=== PATIENT | male | born 1930 | race Caucasian/White ===

== ENCOUNTER 2018-01-26 19:19 | Inpatient (IN) | payer MEDICARE, OTHER ==
[~2018-01-26] VITALS: Ht 175.3 cm; Wt 89.9 kg
[~2018-01-26 19:19] MED LIST: COLACE100 MG PO; FISH OIL 1,2001 EACH PO; LISINOPRIL10 MG PO; LISINOPRIL20 MG PO; MEN'S MULTI-VI1 EACH PO; MIRALAX255 GM PO; SENOKOT-S1 TA1 PO; TENORMIN50 MG PO; VITAMIN D1000 UNI1 PO
[2018-01-26 19:28] VITALS: BP 149/96
[2018-01-26 20:40] LABS: ABSOLUTE LYMPHOCYTES 1.8 thou/uL (0.8-5.3); ABSOLUTE MONOCYTES 0.5 thou/uL (0.0-1.2); ABSOLUTE NEUTROPHILS 6.9 thou/uL (1.6-8.1); BASOPHILS 0.4 %; EOSINOPHILS 0.2 %; HEMATOCRIT 47.5 % (42.0-52.0); HEMOGLOBIN 15.9 gm/dL (14.0-18.0); LYMPHOCYTES 19.6 %; MCH 30.7 pg (26.0-34.0); MCHC 33.5 g/dL (28.0-37.0); MCV 91.7 fL (80.0-100.0); MONOCYTES 5.7 %; MPV 7.7 fl. (7.2-11.1); NUCLEATED RBCS 0 /100WBC; PLATELET COUNT* 196 thou/uL (150-400); POLYS 74.1 %; RBC 5.18 mil/uL (4.50-6.00); RDW-CV 13.1 % (10.5-14.5); WBC 9.3 thou/uL (4.0-11.0)
[2018-01-26 20:48] LABS: ANION GAP 11 mmol/L (7-16); BUN 11 mg/dL (7-18); CALCIUM 9.2 mg/dL (8.5-10.1); CHLORIDE 102 mmol/L (98-107); CO2 27 mmol/L (21-32); GLUCOSE 159 mg/dL (70-99); POTASSIUM 4.2 mmol/L (3.5-5.1); SODIUM 140 mmol/L (136-145)
[2018-01-26 20:51] LABS: APTT 29.7 Seconds (25.0-31.3); INR 1.2; PROTIME 11.5 Seconds (9.20-11.50)
[2018-01-26 20:59] LABS: ALBUMIN 3.4 g/dL (3.4-5.0); ALKALINE PHOSPHATASE 78 U/L (46-116); NT-PRO BRAIN NAT PEPTIDE 130 pg/mL (<300); SGOT 13 U/L (15-37); SGPT 21 U/L (30-65); TOTAL PROTEIN 7.3 g/dL (6.4-8.2); TROPONIN-I LEVEL <0.06 ng/mL (<0.06)
[2018-01-26 21:34] LABS: INFLUENZA A ANTIGEN None Detected (None Detect); INFLUENZA B ANTIGEN None Detected (None Detect)
[2018-01-26 23:15] LABS: URINE BILIRUBIN NEGATIVE (Negative); URINE BLOOD NEGATIVE (Negative); URINE CLARITY SL CLOUDY; URINE COLOR YELLOW; URINE GLUCOSE-RANDOM NEGATIVE (Negative); URINE KETONES NEGATIVE (Negative); URINE LEUKOCYTES-REFLEX NEGATIVE (Negative); URINE NITRITE-REFLEX NEGATIVE (Negative); URINE PROTEIN NEGATIVE (Negative); URINE SPECIFIC GRAVITY 1.025 (1.005-1.030); URINE UROBILINOGEN 0.2 E.U./dl (0.2-1.0)
[2018-01-27 01:00] VITALS: BP 186/91
[2018-01-27] MEDS ORDERED: LIPITOR10 MG PO (03:49)
[2018-01-27] MEDS ORDERED: FLOMAX0.4 MG PO (03:52)
[2018-01-27] MEDS ORDERED: LOPRESSOR50 PO (03:52)
[2018-01-27] MEDS ORDERED: REMERON15 MG PO (03:52)
[2018-01-27] MEDS ORDERED: METFORMIN HCL500 MG PO (03:53)
[2018-01-27 04:21] VITALS: BP 182/95
--- NOTE | 2018-01-27 05:53 | NUR ---
REPORT RECIEVED FROM JIMMY IN ER. ASKED ER NURSE ABOUT SOMETHING FOR PTS BLOOD PRESSURE BEFORE TRANSFER TO UNIT, NURSE STATED THAT ER DOCTOR DID NOT WANT PT TO HAVE ANYTHING BECAUSE THE DOCTOR WAS AFRAID TO LOWER PTS BLOOD PRESSURE TOO MUCH. PT ARRIVED ON UNIT AT 0045. PT ORIENTED TO ROOM, CALL LIGHT SHOWN, WENT OVER FALL AGREEMENT. PTS DAUGHTER HELPED ANSWER QUESTIONS FOR PT PATIENT WAS VERY LETHARGIC AND FALLING ASLEEP DURING QUESTIONING. ASSESSMENT DOCUMENTED. MEDS GIVEN PER E-MAR. IV PATENT FLUIDS INFUISNG. NO REPORTS OF PAIN OR NAUSEA. PT INCONTINENT ONCE THIS SHIFT. PT STOOD WITH MAX ASSIST ONCE THIS SHIFT TO USE URINAL. PT WANTING TO REGAIN STRENTH AND APPITITE BEFORE DISCHARGE. WILL CONTINUE WITH PLAN OF CARE.
[2018-01-27] MEDS ORDERED: CLARITIN10 MG PO (07:46)
[2018-01-27] MEDS ORDERED: NAMENDA 5 MG TAB5 M1 PO (07:49)
[2018-01-27 08:00] VITALS: BP 182/95
[2018-01-27 12:01] LABS: ALBUMIN 2.8 g/dL (3.4-5.0); CALCIUM 8.5 mg/dL (8.5-10.1); CREATININE 0.8 mg/dL (0.6-1.3); TOTAL BILIRUBIN 0.9 mg/dL (<0.1-1.0); TOTAL PROTEIN 6.1 g/dL (6.4-8.2)
--- NOTE | 2018-01-27 13:44 | NUR ---
SW met with pt to complete initial assessment, introduce self, and SW role. Pt very sleepy and [place] but would respond, given time. Pt said that he feels okay at home and said that he didn't think he was ready to go today. SW explained that SW was just meeting pt today and planning ahead. YARIEL called pt dtr Katherine and discussed safe dc planning and possible need for SNF. Pt dtr felt that pt would not need SNF and pt dtr said that she would hire more care assistants and increase time of assistance at home. Pt dtr says that pt has 3 hrs a day for 6 days a week and could increase...pt dtr takes care of pt the other day of the week. SW to continue to follow to assist with safe dc planning.
--- NOTE | 2018-01-27 15:21 | EKG ---
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 : 1930 Requested By: William Montaño Order Number: [id number] MD: Mike Victoria Measurements Intervals [place] Rate: 89 P: 20 WI: 180 QRS: -42 QRSD: 96 T: 39 QT: 356 QTc: 434 Interpretive Statements Sinus rhythm Probable left atrial enlargement Abnormal R-wave progression, late transition Inferior infarct, old Compared to ECG 11/23/2016 22:17:58 Myocardial infarct finding now present Left anterior fascicular block no longer present Electronically Signed On 01-27-2018 15:20:52 TEST CELL TECHNICIAN by Mike Victoria [email or web address] <ELECTRONICALLY SIGNED> By: Mike Victoria MD, FACC 01/27/18 1520 56 56 Mike Victoria MD, FAC /EPI
[2018-01-27 16:00] VITALS: BP 145/69
--- NOTE | 2018-01-27 16:33 | 2DMMODE ---
[place] [address] 2 D/M-MODE ECHOCARDIOGRAM Name: MANJINDER SO Room: [address] IN [facility]#: [id number] Admission: 01/26/18 Attend Phys: Cintia Talavera, Discharge: Date of : [birth year] Date of Service: 01/27/18 1633 Report #: [id number] THIS REPORT FOR: //name// APPROVED REPORT Study performed: 01/27/2018 15:13:06 EXAM: Comprehensive 2D, Doppler, and color-flow Echocardiogram Patient Location: In-Patient Room #: [facility] Status: routine BSA: 2.06 HR: 68 bpm BP: 182/95 mmHg Rhythm: NSR Other Information Study Quality: Good Indications CVA/TIA Echo Enhancing Agent Indication: Rule out Shunt Agent(s) / Amount(s) Used: Agitated Saline 10 cc 2D Dimensions LVEF(%): 75.02 (>50%) IVSd: 15.97 (7-11mm) LVOT Diam: 23.28 (18-24mm) LVDd: 46.21 mm PWd: 11.66 (7-11mm) Ascending Ao: 33.45 (22-36mm) LVDs: 25.98 (25-40mm) Aortic Root: 38.69 mm Herrmann's LVEF: 75.02 % Volumes Left Atrial Volume (Systole) LA ESV Index: 27.40 mL/m2 Aortic Valve AoV Peak Ac.: 1.39 m/s AO Peak Gr.: 7.70 mmHg LVOT Max P.07 mmHg AO Mean Gr.: 4.62 mmHg LVOT Mean P.78 mmHg LVOT Max V: 1.01 m/s AO V2 VTI: 26.95 cm LVOT Mean V: 0.60 m/[place] [address] 2 D/M-MODE ECHOCARDIOGRAM Name: MANJINDER SO Room: [address] [facility].#: [id number] Admission: 01/26/18 Attend Phys: Cintia Talavera, Discharge: Date of : [birth year]/26[birth year] Date of Service: 01/27/18 1633 Report #: [id number] PANDA (VTI): 2.99 cm2 LVOT V1 VTI: 18.91 cm Mitral Valve E/A Ratio: 0.74 MV Decel. Time: 221.70 ms MV E Max Ac.: 0.65 m/s MV PHT: 64.29 ms MVA (PHT): 3.42 cm2 TDI E/Lateral E': 5.91 E/Medial E': 5.42 Medial E' Ac.: 0.12 m/s Lateral E' Ac.: 0.11 m/s Pulmonary Valve PV Peak Ac.: 0.76 m/s PV Peak Gr.: 2.33 mmHg Tricuspid Valve TR Peak Gr.: 31.61 mmHg RVSP: 36.00 mmHg Left Ventricle The left ventricle is normal size. There is normal LV segmental wall motion. Mild to moderate concentric left ventricular hypertrophy. Left ventricular systolic function is normal. The left ventricular ejection fraction is within the normal range. LVEF is 60-65%. Grade I - abnormal relaxation pattern. Right Ventricle The right ventricle is normal size. The right ventricular systolic function is normal. Atria The left atrium size is normal. Interatrial septum is intact without evidence of ASD or PFO. The right atrium size is normal. Aortic Valve The aortic valve is normal in structure. Trace aortic regurgitation. There is no aortic valvular stenosis. Mitral Valve The mitral valve is normal in structure. There is no mitral valve regurgitation noted. No evidence of mitral valve stenosis. Tricuspid Valve The tricuspid valve is normal in structure. Mild tricuspid regurgitation. The RVSP is 35-[place] [address] 2 D/M-MODE ECHOCARDIOGRAM Name: MANJINDER SO Room: [address] IN .R.#: [id number] Admission: 01/26/18 Attend Phys: Cintia Talavera, Discharge: Date of : [birth year]/26/[birth year] Date of Service: 01/27/18 1633 Report #: [id number] Pulmonic Valve The pulmonary valve is normal in structure. Mild pulmonic regurgitation. Great Vessels The aortic root is normal in size. IVC is not well visualized. Pericardium There is no pericardial effusion. <Conclusion> Interatrial septum is intact without evidence of ASD or PFO. Grade I - abnormal relaxation pattern. LVEF is 60-65%. There is normal LV segmental wall motion. Mild to moderate concentric left ventricular hypertrophy. There is no aortic valvular stenosis. Trace aortic regurgitation. Mild tricuspid regurgitation. The RVSP is 35-40 mmHg. <ELECTRONICALLY SIGNED> By: Mike Victoria MD, FACC 01/27/18 1633 32 163 Mike Victoria MD, FACC /INF
--- NOTE | 2018-01-27 19:36 | NUR ---
ASSUMED CARE THIS AM. ORIENTED TO SELF, [place]VAK, IMPULSIVE FALL RISK. ANSWERS YES/NO TO QUESTIONS. DAUGHTER AT BEDSIDE ALL THIS SHIFT, UNABLE TO PROVIDE PHYSICAL ASSIST WITH ADL. PATIENT REPORTEDLY LIVES AT HOME WITH DAUGHTER BEING PRIMARY CAREGIVER BUT DAUGHTER IS PHYSICALLY LIMITED IN ABILITY TO PROVIDE ASSIST DUE TO SEDENTARY LIFESTYLE. PATIENT REPORTEDLY HAS CAREGIVER VISIT HOME FOR A COUPLE HOURS PER DAY, BUT PATIENT IS AT HOME, ALONE FOR SEVERAL HOURS AT A TIME. INCONTINENT OF BLADDER AT TIMES. PATIENT PULLED IV ACCESS OUT DUE TO IMPULSIVITY AND NEED TO VOID, PRIOR TO RECEIVING ASSIST. DID HAVE HARD, FIRM BM THIS SHIFT, DAUGHTER UNAWARE OF LAST BOWEL MOVEMENT. DAUGHTER IS NOT FOND OF PATIENT TRANSITIONING TO SKILLED LTC SETTING AT THIS TIME. HOWEVER, UNDER CURRENT CIRCUMSTANCES, PATIENT IS LEFT ALONE IN HOME FOR SEVERAL HOURS PER DAY, INCONTINENT OF URINE, UNABLE TO NAVIGATE TO TOILET, UNABLE TO PROVIDE SELF FOOD, MULTIPLE RISKS FOR MAJOR, IF NOT LIFE-THREATENING INJURY WHEN LEFT TO HIS OWN DEVICES. CASE MANAGEMENT INFORMED OF SITUATION AND NEED FOR INTERVENTION.
[2018-01-27 21:45] VITALS: BP 144/75
[2018-01-28 02:08] LABS: GLYCOHEMOGLOBIN (HGB A1C) 5.6 % (4.8-5.6)
[2018-01-28 04:19] LABS: ABSOLUTE EOSINOPHILS 0.2 thou/uL (0.0-0.7); ABSOLUTE LYMPHOCYTES 1.6 thou/uL (0.8-5.3); ABSOLUTE MONOCYTES 0.5 thou/uL (0.0-1.2); ABSOLUTE NEUTROPHILS 3.8 thou/uL (1.6-8.1); BASOPHILS 0.6 %; EOSINOPHILS 3.1 %; HEMATOCRIT 42.4 % (42.0-52.0); HEMOGLOBIN 14.6 gm/dL (14.0-18.0); LYMPHOCYTES 26.3 %; MCH 31.3 pg (26.0-34.0); MCHC 34.4 g/dL (28.0-37.0); MONOCYTES 8.1 %; MPV 8.2 fl. (7.2-11.1); NUCLEATED RBCS 0 /100WBC; PLATELET COUNT* 149 thou/uL (150-400); POLYS 61.9 %; RBC 4.66 mil/uL (4.50-6.00); RDW-CV 13.2 % (10.5-14.5); WBC 6.1 thou/uL (4.0-11.0)
[2018-01-28 04:50] LABS: ANION GAP 8 mmol/L (7-16); BUN 13 mg/dL (7-18); CALCIUM 8.5 mg/dL (8.5-10.1); CHLORIDE 105 mmol/L (98-107); CHOLESTEROL 93 mg/dL (<200); CO2 25 mmol/L (21-32); GLUCOSE 101 mg/dL (70-99); HDL CHOLESTEROL 52 mg/dL (>40); LDL CHOLESTEROL 25 mg/dL (<100); SODIUM 138 mmol/L (136-145); TC:HDL 1.8 Ratio (Not establshd); TRIGLYCERIDE 82 mg/dL (<150); VLDL 16 mg/dL (<40)
[2018-01-28 04:53] LABS: SERUM ASSESSMENT Clear
--- NOTE | 2018-01-28 05:34 | NUR ---
PT SLEPT MOST OF SHIFT. ASSESSMENT DOCUMENTED. MEDS GIVEN PER E-JAN. NO REPORTS OF PAIN. NEW IV STARTED IN RIGHT FOREARM, FLUIDS INFUSING. WILL CONTINUE PLAN OF CARE.
[2018-01-28 06:04] LABS: ESR (SEDRATE) 11 mm/hr (0-20)
[2018-01-28 08:00] VITALS: BP 149/70
[2018-01-28 15:03] VITALS: BP 131/59
[2018-01-28 20:00] VITALS: BP 132/66
--- NOTE | 2018-01-28 20:03 | NUR ---
RESUMED CARE THIS AM. ORIENTED X 3, DENIES PAIN, EXT ASSIST WITH ALL ADL. DID AMBULATE 230 FEET WITH THERAPY TODAY. NOTED TO POCKET FOOD DURING MEALS TODAY. CONTINENT OF BOWEL/BLADDER. DAUGHTER AT BEDSIDE. MRI COMPLETE, EEG COMPLETE, DISCHARGE PLAN IS TO RETURN TO HOME WITH PRIVATE DUTY AND DAUGHTER FOR CAREGIVER.
--- NOTE | 2018-01-29 04:59 | NUR ---
PT SLEPT AT INTERVALS DURING THE NIGHT, PLEASANT, UP WITH ASSIST TO THE BSC, PT TURNED, INCONTINENT WELL, DENIED PAIN, DAUGHTER HERE UNTIL HS, CALL LIGHT IN REACH, BED ALARM ON FOR SAFETY, WILL CONTINUE TO MONITOR
[2018-01-29 08:30] VITALS: BP 123/66
[2018-01-29 12:30] VITALS: BP 123/66
--- NOTE | 2018-01-29 12:31 | NUR ---
SW received notification of pt readiness to dc home today with HH services to follow. YARIEL called pt dtr Katherine and discussed safe dc plan; pt/family choice for pt to return home with dtr and dtr plans to increase private duty care as needed and accepting of HH services. Pt/family preference for [facility] services; YARIEL arranged with [facility] and YARIEL faxed referral and orders and med list to fax number [phone]. No other needs or concerns expressed at this time.
[2018-01-29] MEDS ORDERED: VITAMIN B-12500 MCG PO (14:49)
--- NOTE | 2018-01-29 15:18 | NUR ---
I have reviewed the documentation by KERRY WAGNER from 01/29/18 to 01/29/18 and I concur with it. TREVOR BRIGGS
[2018-01-29 16:00] VITALS: BP 129/63
--- NOTE | 2018-01-29 17:10 | NUR ---
PATIENT DISCHARGED TO HOME WITH HOME HEALTH. DISCHARGE PAPERS REVIEWED WITH PATIENT AND DAUGHTER AND SIGNED. NO PRESCRIPTION. PATIENT INFORMED TO START VITAMIN B12 AND TO FOLLOWUP WITH NEUROLOGIST. PATIENT ASSISTED WITH CLOTHING. PATIENT DENIES ANY FURTHER NEEDS. PATIENT TAKEN BY WHEELCHAIR TO EXIT. LEFT WITH DAUGHTER.
--- NOTE | 2018-02-07 15:56 | CON ---
[address] [address] CONSULTATION Name: MANJINDER SO Room: [address] IN M.R.#: [id number] Admission: 01/26/18 Attend Phys: Cintia Talavera MD Discharge: 01/29/18 Date of : [birth year] Report #: [id number] THIS REPORT FOR: //name// CC: Elder Talavera DATE OF SERVICE: 01/27/2018 HISTORY OF PRESENT ILLNESS: This is an 87-year-old male patient who was evaluated by me for altered mental status. This patient's history is provided by the daughter. The daughter indicated that she moved with her father in the middle of last year. This was because he was falling down and was getting untangled. It was associated with memory loss also. His long-term memory was relatively preserved, but short-term memory is not good. He is not able to remember the month and days and he gets confused with that. All of it started spontaneously without any trauma. He does not know anything which makes it better or worse. REVIEW OF SYSTEMS: Indicate that this patient had multiple mechanical falls. He has not been feeling good. He has not been eating good. He has generalized weakness. He feels that he may be getting sick. His medication has not been changed recently. He denies any prior history of stroke. This patient is on Namenda, but I do not know whether he has been diagnosed with dementia or not. No clearcut history is available. I carried out 14-point review of system with the daughter and this was the relevant 14-point review of system in this patient. She does indicate some depression and hypertension. He does have a history of diabetes. They deny any history of stroke. It does not look like the patient has any new eye, ENT, cardiac, respiratory, GI, , musculoskeletal, dermatological, hematological, psychiatric, throat, allergic symptom associated with present symptomatology. The patient does have endocrine symptoms of diabetes and he may have some constitutional symptoms. PAST MEDICAL HISTORY: Positive for what looks like ambulation difficulty. FAMILY HISTORY: Negative for any early age stroke. SOCIAL HISTORY: He does not use any alcohol. PHYSICAL EXAMINATION: Indicate he is alert. He is responsive. He does not talk much, but he does have speech. He is not oriented. His fund of knowledge and memory is diminished. Cranial nerve examination 2-12 was attempted, the best it could be done. It does not appear to be showing any definite abnormality. His strength, sensation, reflexes and tone is symmetrical. His reflexes are diminished on both sides. His strength is poor or he does not give a good effort. His sensation is present. His pulses are palpable. He did not understand the instruction to do the cerebellar sign [place] [address] CONSULTATION Name: MANJINDER SO Room: [address]#: [id number] Admission: 01/26/18 Attend Phys: Cintia Talavera MD Discharge: 01/29/18 Date of : [birth year] Report #: [id number] with the fundus examination for me to look at. He is a very well-developed individual who does not have any dysmorphic features of eyes, ears and face. His vision and hearing looks adequate the best I can tell. He has no thyroid mass. There is no edema, cyanosis or jaundice. Pulses are palpable. Heart sounds mostly looks unremarkable, has no atrial fibrillation, no respiratory difficulty or rhonchi. Blood pressure is 145/69, respirations 18, pulse 84, temperature is 99.1. LABORATORY DATA: Indicated normal white count at 9.3 and B12 was somewhat on the lower side at 278. TSH is normal. He did have a CT scan of the head done which was mostly unremarkable. Ventricles are prominent and probably because of atrophy. IMPRESSION: 1. This patient most likely has underlying dementia. 2. He probably has a superimposed encephalopathy secondary to viral syndrome. 3. Treatment is going to be symptomatic. 4. I will suggest trying some physical therapy, which is already ordered. 5. The daughter needs to decide if she can handle this patient at home or whether he needs to go to residential. 6. We will see how this patient does with physical therapy and reevaluate him tomorrow. RECOMMENDATIONS: 1. We will go ahead and do the MRI. 2. I will check an EEG. 3. I will give him a B12 shot. 4. We will see how he does with physical therapy. 5. Main thing is going to be supportive treatment and see how much he can be managed by family or need to go to residential. Thank you very much for this referral. <ELECTRONICALLY SIGNED> By: Marlo Borden MD 02/07/18 1556 1757 [id number] Borden MD /nt
--- NOTE | 2018-02-07 15:56 | EEG ---
[address] [address] EEG STUDY REPORT Name: SOMANJINDER GIRON Room: [address] IN M.R.#: [id number] Admission: 01/26/18 Attend Phys: Cintia Talavera MD Discharge: 01/29/18 Date of : [birth year] Report #: [id number] THIS REPORT FOR: //name// CC: Elder Talavera DATE OF SERVICE: 01/28/2018 This patient is being evaluated for altered mental status. EEG was done by placing the electrodes by standard 10-20 system of electrode placement. Both referential and sequential montages were used for recording. Background activity in this patient's EEG is about 7 Hz and 30 microvolt. The patient appeared to be drowsy during part of this EEG and that demonstrated even more slowing. Photic stimulation was unremarkable. Throughout the record, no active epileptiform activity was noticed. IMPRESSION: This is a pretty significantly slow electroencephalogram on both sides. That is a nonspecific abnormality, which can occur with encephalopathy, effect of psychotropic medication, dementia, etc. Clinical correlation is recommended. <ELECTRONICALLY SIGNED> By: Marlo Borden MD 02/07/18 1556 1432 [id number] Borden MD /nt
[2018-09-22] MEDS ORDERED: STOOL SOFTENER100 MG PO (07:03)
[2018-09-22] MEDS ORDERED: MIRALAX17 GM PO (16:57)
[2018-09-22] MEDS ORDERED: ATROPINE S0.1 MG/1 M SUBLING (16:59)
== END 2018-01-29 17:10 | disposition home health service (06) | DRG 682 ==
LOC: M.ERS 19:19 → M.TBA-ER 23:54 → M.3W 23:54
PROVIDERS: Family Medicine; Internal Medicine; ADMIT Internal Medicine
DX: I12.9 Hypertensive chronic kidney disease with stage 1 through stage 4 chronic kidney disease, or unspecified chronic kidney disease (principal); G93.40 Encephalopathy, unspecified; N18.2 Chronic kidney disease, stage 2 (mild); E86.0 Dehydration; B34.9 Viral infection, unspecified; I10 Essential (primary) hypertension; E11.9 Type 2 diabetes mellitus without complications; H91.90 Unspecified hearing loss, unspecified ear; F03.90 Unspecified dementia, unspecified severity, without behavioral disturbance, psychotic disturbance, mood disturbance, and anxiety; Z79.899 Other long term (current) drug therapy; Z88.0 Allergy status to penicillin; Z82.49 Family history of ischemic heart disease and other diseases of the circulatory system